=== PATIENT | male | born 1955 | race Caucasian/White ===

== ENCOUNTER 2017-12-02 18:12 | Emergency (ER) | payer SELFPAY ==
[~2017-12-02 18:12] MED LIST: AMLO-96 PO; AUG500 PO; AZI250 PO; BEN100 PO; DIA10 PO; ENA10 PO; FLUC150T40 PO; FLUO-202 PO; GUAI1CAP92 PO; GUAI480S48 PO; HCTZ25 PO; HYDR-317 PO; IBU800 PO; INDO25 PO; LOR5 PO; LOR5/325 PO; PER PO; TRAMADOL
[2017-12-02 18:47] VITALS: BP 147/83
[2017-12-02] MEDS ORDERED: LISINOPRIL (18:52)
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
== END 2017-12-02 19:59 | disposition home or self-care (01) ==
LOC: ER 18:55
DX: S62.639A Displaced fracture of distal phalanx of unspecified finger, initial encounter for closed fracture (principal)
CPT/HCPCS: 99282

== ENCOUNTER → 2018-08-12 | Outpatient (REF) ==
[~2018-08-12] MED LIST changes: +AMLO-111 PO; -AMLO-96 PO; +LISINOPRIL
--- NOTE | 2018-08-12 13:35 | RADIOLOGY IMAGING REPORT ---
FACILITY: [facility] [place] PATIENT NAME: Wu Young : 1955 MR: [id number] V: [id number] EXAM DATE: ORDERING PHYSICIAN: TSERING PUCKETT TECHNOLOGIST: Location: [facility] [place] Patient: Wu Young : 1955 Visit/Account:[id number] Date of Sevice: 08/12/2018 Exam type: SHOULDER MIN 2 VIEWS LEFT History: Left shoulder pain, no known injury Comparison: Right shoulder November 15, 2015. Findings: Two views the left shoulder were submitted. Peritendinous calcifications are noted. Mild degenerati ve changes at the left AC joint are present. No significant narrowing identified the left glenohumer al joint IMPRESSION: 1. Peritendinous calcifications are present Mild degenerative changes of the left AC joint Report Dictated By: Berkley Palma MD at 08/12/2018 1:30 PM Report E-Signed By: Berkley Palma MD at 08/12/2018 1:32 PM WSN:[id number]
== END ==
LOC: RAD 11:33
PROVIDERS: ATTEND Nurse Practitioner
DX: M19.012 Primary osteoarthritis, left shoulder (principal)